=== PATIENT | female | born 1975 | race Caucasian/White ===

== ENCOUNTER 2016-10-10 16:15 | Emergency (ER) | payer OTHER ==
[~2016-10-10] VITALS: Ht 157.5 cm; Wt 89.0 kg
[~2016-10-10 16:15] MED LIST: PREN1TAB13 PO
[2016-10-10 16:17] VITALS: Ht 157.5 cm; Wt 89.0 kg
--- NOTE | 2016-10-10 18:35 | RADRPT ---
PROCEDURE: US Pelvis. CLINICAL INDICATION: 41-year-old female with pelvic pain. TECHNIQUE: Multiple sonographic images of the pelvis were obtained utilizing a transabdominal and endovaginal technique. The images were reviewed on a PACS workstation. COMPARISON: OB sonogram 10/24/2015. FINDINGS: The uterus is visualized and measures 9.1 cm sagittal by 4.7 cm AP by 5.6 cm transverse. Several Nab othian cysts are identified on the cervix. The endometrial echo complex is normal and measures 1.2 cm. There is no evidence for free fluid. The right ovary has a normal echotexture and measures 2.6 x 1.4 x 2 cm . The left ovary has a normal echotexture and measures 3.5 x 1.7 by 2.1 cm.. A 0.9 cm m inimally complex cyst is noted in the left ovary. This requires no additional follow-up. No adnexa l masses are noted. IMPRESSION: 1. Multiple Nabothian cysts are identified. 2. Normal endometrium. 3. No abnormal adnexal mass or free fluid is noted in the cul-de-sac. RPTAT:AAJJ Physician Naima Date Time Electronically viewed and signed by Physician Naima on 10/10/2016 18:34 RAHUL/
[2016-10-10 18:44] LABS: ADD UMIC YES; UR ASCORBIC ACID NEGATIVE (NEGATIVE); UR BACTERIA FEW /HPF (NONE SEEN); UR BILIRUBIN (Dip) NEGATIVE (NEGATIVE); UR BLOOD (Dip) 2+ mg/dL (NEGATIVE); UR CLARITY SLIGHTLY CLOUDY (CLEAR); UR COLOR YELLOW (YELLOW); UR GLUCOSE (Dip) NEGATIVE (NEGATIVE); UR KETONES (Dip) NEGATIVE (NEGATIVE); UR LEUKOCYTE ESTERASE (Dip) NEGATIVE Leu/ul (NEGATIVE); UR MUCUS MODERATE /HPF (NONE SEEN); UR NITRITE (Dip) NEGATIVE (NEGATIVE); UR RBC 7 /HPF (0-5); UR SPECIFIC GRAVITY (Dip) 1.029 (1.003-1.030); UR SQUAMOUS EPITHELIAL CELL FEW /HPF (FEW); UR TOTAL PROTEIN (Dip) 1+ mg/dl (NEGATIVE); UR UROBILINOGEN (Dip) NEGATIVE (NEGATIVE)
[2016-10-10] MEDS ORDERED: HYDR-842 PO (18:50)
[2016-10-10] MEDS ORDERED: DOXY-17 PO (18:50)
[2016-10-10] MEDS ORDERED: IBUP-1542 PO (18:50)
[2016-10-10] MEDS ORDERED: ELIM TOP (18:50)
[2016-10-10] MEDS ORDERED: CLOT14.2 TP (18:50)
--- NOTE | 2016-10-11 00:46 | ERD ---
ER Documentation Chief Complaint Date/Time DATE: 10/11/16 TIME: 00:20 Chief Complaint PELVIC PAIN X 3 DAys, rash HPI 41-year-old female presents emergency department with multiple complaints. Patient complains of sharp, crampy pelvic pain L>R for 3 months, state sit is worse after her menses. Patient denies fevers, vaginal bleeding. She also complains of rash through out body x 1 month. Third complaint, rash in between left foot toes. Denies chest pain, shortness of breath. ROS All systems reviewed and are negative except as per history of present illness. Medications Home Meds Active Scripts Hydroxyzine Hcl* (Atarax*) 25 Mg Tab, 25 MG PO Q6H Y for ITCHING, #30 TAB Prov:ALY MORA PA-C 10/10/16 Ibuprofen* (Ibuprofen*) 600 Mg Tablet, 600 MG PO Q6H, #30 TAB Prov:ALY MORA PA-C 10/10/16 Clotrimazole (RINGWORM) 14.2 Gm Cream..g., 1 GM TP BID for 10 Days Prov:ALY MORA PA-C 10/10/16 Doxycycline* (Vibramycin*) 100 Mg Capsule, 100 MG PO BID for 10 Days, EA Prov:ALY MORA PA-C 10/10/16 Permethrin* (Elimite*) 5% Cr, 1 APPLIC TOP ONCE for 1 Day, TUB Prov:ALY MORA PA-C 10/10/16 Reported Medications Pnv95/Ferrous Fumarate/FA ( Vitamins Tablet) 1 Each Tablet, 1 EACH PO, TAB 10/24/15 Allergies Allergies: Coded Allergies: No Known Allergy (Unverified , 10/24/15) PMhx/Soc Hx Alcohol Use: No Hx Substance Use: No Hx Tobacco Use: No Smoking Status: Never smoker Physical Exam Vitals Vital Signs Date Time Temp Pulse Resp B/P Pulse Ox O2 Delivery O2 Flow Rate FiO2 10/10/16 16:17 98.1 89 20 159/80 99 Physical Exam GENERAL: well-developed/well-nourished, in no apparent distress, non-toxic appearing HENT: NC/AT, moist mucous membranes EYES: Conjunctiva normal NECK: Supple, no lymphadenopathy PULM: CTA bilaterally, no rales, rhonchi, or wheezing heard CV: Normal S1S2, RRR, good capillary refill GI: Soft, non-distended, tender to palpation pelvic region Normal bowel sounds, no masses or organomegaly felt on exam No gross peritonitis, no bruits Negative Rovsing, negative Jarquin, negative McBurney's point, Negative CVAT BACK: No masses EXT: No clubbing, cyanosis, or edema NEURO: Alert and Orientated SKIN: maceration in between toes left foot erythematous papulaes throughout body PSYCH: Normal mood and mentation Results 24 hrs Laboratory Tests Test 10/10/16 18:19 Urine Color YELLOW Urine Clarity SLIGHTLY CLOUDY Urine pH 5.0 Urine Specific [place] 1.029 Urine Ketones NEGATIVEmg/dL Urine Nitrite NEGATIVEmg/dL Urine Bilirubin NEGATIVEmg/dL Urine Urobilinogen NEGATIVEmg/dL Urine Leukocyte Esterase NEGATIVELeu/ul Urine Microscopic RBC 7/HPF Urine Microscopic WBC 1/HPF Urine Squamous Epithelial Cells FEW/HPF Urine Bacteria FEW/HPF Urine Mucus MODERATE/HPF Urine Hemoglobin 2+mg/dL Urine Glucose NEGATIVEmg/dL Urine Total Protein 1+mg/dl Procedures/MDM 41 year old female presents with multiple complaints 1. pelvic pain x 3 months. no evidence of torsion, cyst. No evidence of infection on UA. An ultrasound was done, radiologist stated: 1. Multiple Nabothian cysts are identified. 2. Normal endometrium. 3. No abnormal adnexal mass or free fluid is noted in the cul-de-sac. patient is stable to be discharged home to follow up with [facility] 2. dermatitis. scabies vs folliculitis vs other. prescription for permethrin and doxy was provided, discussed to follow-up with drug enforcement administration agent 3. rash in between left toes, likely athlete's foot, prescription for clotrimazole was given stable discharge to be home Departure Diagnosis: Primary Impression: Pelvic pain Additional Impressions: Dermatitis Athletes foot Laterality: right Qualified Code: B35.3 - Tinea pedis of right foot Condition: Stable Patient Instructions: Scabies, Dermatitis, Non-Specific, Athlete'S Foot, Pelvic Pain, Unknown Cause Additional Instructions: FOLLOW UP WITH YOUR PRIMARY CARE PHYSICIAN TOMORROW.Return to this facility if you are not improving as expected. Take all medicines as directed. Return to this facility if you are not improving as expected. ALY MORA PA-C Oct 11, 2016 00:30
== END 2016-10-10 18:51 | disposition home or self-care (01) ==
LOC: FTE 16:15
DX: R10.2 Pelvic and perineal pain (principal); L30.9 Dermatitis, unspecified; B35.3 Tinea pedis
CPT/HCPCS: 76830; 76856; 81001; 87086